=== PATIENT | male | born 1940 | race Hispanic/Latino ===

== ENCOUNTER 2017-10-15 16:39 | Emergency (ER) | payer OTHER ==
[2017-10-15 16:59] VITALS: BP 154/73; PULSE 86; RESP 18; TEMP 98.5; O2SAT 99
--- NOTE | 2017-10-15 17:06 | ED PDOC ---
HPI: Head Injury Time Seen by Provider: 10/15/17 17:01 Chief Complaint (Nursing): Trauma Chief Complaint (Provider): Head Injury History Per: Patient History/Exam Limitations: no limitations Additional Complaint(s): 76 y/o male presents to the emergency department accompanied by after patient slipped and fell backward outside on ice this morning around 11:00 am. Associated with pain to the back of the head where he sustained injury. Reports he had a mild neck pain but had resolved since after taking Motrin 600 mg around 11:30 this morning. Patient has been applying an ice pack to the back region of the head with minimal relief. Denies vomiting, headache, loss of consciousness, nausea, urinary symptoms, use of blood thinners, or active blood after the fall. PMD: Dr. Jazmine Mora MD Past Medical History Reviewed: Historical Data, Nursing Documentation, Vital Signs Vital Signs: Last Vital Signs Temp 98.5 F 10/15/17 16:56 Pulse 86 10/15/17 16:56 Resp 18 10/15/17 16:56 BP 154/73 H 10/15/17 16:56 Pulse Ox 99 10/15/17 16:56 - Medical History PMH: HTN, Hypercholesterolemia - Surgical History Surgical History: No Surg Hx - Family History Family History: States: Unknown Family Hx - Social History Current smoker - smoking cessation education provided: No Alcohol: None Drugs: Denies - Allergies Allergies/Adverse Reactions: Allergies Allergy/AdvReac Type Severity Reaction Status Date / Time No Known Allergies Allergy Verified 10/15/17 16:56 Review of Systems ROS Statement: Except As Marked, All Systems Reviewed And Found Negative (As per HPI, otherwise negative) Constitutional: Positive for: Other (Posterior scalp pain) Gastrointestinal: Negative for: Nausea, Vomiting Genitourinary Male: Negative for: Dysuria, Frequency, Incontinence, Hematuria Musculoskeletal: Positive for: Neck Pain (Had resolved since) Neurological: Negative for: Headache, Other (loss of consciousness) Physical Exam - Reviewed Nursing Documentation Reviewed: Yes Vital Signs Reviewed: Yes - Physical Exam Appears: Positive for: Well, Non-toxic, No Acute Distress Head Exam: Positive for: ATRAUMATIC, NORMAL INSPECTION, NORMOCEPHALIC Skin: Positive for: Normal Color, Warm, Dry Eye Exam: Positive for: Normal appearance, EOMI, PERRL ENT: Positive for: Normal ENT Inspection, TM Is/Are (Clear) Neck: Positive for: Normal, Painless ROM, Supple. Negative for: Pain On Movement Of Neck Cardiovascular/Chest: Positive for: Regular Rate, Rhythm. Negative for: Murmur Respiratory: Positive for: Normal Breath Sounds. 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 Normal pronator drift test. ), Gait (Steady). Negative for: Motor/Sensory Deficits, Facial Droop - ECG O2 Sat by Pulse Oximetry: 99 (RA) Pulse Ox Interpretation: Normal Medical Decision Making Medical Decision Making: Time: 1705 Initial impression: Head injury rule out hemorrhage Initial plan: --Evaluation Time: 1730 --Upon evaluation patient is feeling better after taking Motrin 600 mg, is medically stable, and requires no treatment in the ED at this time after all neurological tests were normal. Patient will be discharged home. Counseling was provided and all questions were answered regarding diagnosis and need for follow up with primary care doctor. There is agreement to discharge plan. Return if symptoms persist or worsen. Clinical Impression: Head Injury Scribe Attestation: Documented by Lexis Hernandez, acting as a scribe for Natalia Arauz PA-C Provider Scribe Attestation: All medical record entries made by the Scribe were at my direction and personally dictated by me. I have reviewed the chart and agree that the record accurately reflects my personal performance of the history, physical exam, medical decision making, and the department course for this patient. I have also personally directed, reviewed, and agree with the discharge instructions and disposition. Disposition - Clinical Impression Clinical Impression: Head injury - Patient ED Disposition Is Patient to be Admitted: No Counseled Patient/Family Regarding: Diagnosis, Need For Followup - Disposition Disposition: Routine/Home Disposition Time: 17:30 Condition: STABLE Instructions: Head Injury (ED) Forms: DrDoctor (Faroese)
== END 2017-10-15 17:37 | disposition home or self-care (01) ==
LOC: H.ER 16:39 → EDBD 16:39 → H.ER 17:37
DX: S09.90XA Unspecified injury of head, initial encounter (principal); W00.0XXA Fall on same level due to ice and snow, initial encounter; Y92.89 Other specified places as the place of occurrence of the external cause; E78.00 Pure hypercholesterolemia, unspecified; I10 Essential (primary) hypertension